=== PATIENT | male | born 1980 | race American Indian/Alaskan Native ===

== ENCOUNTER 2021-03-16 11:39 | Emergency (ER) | payer SELFPAY ==
[2021-03-16 12:11] VITALS: BP 142/80
--- NOTE | 2021-03-16 12:31 | Emergency Department Report ---
ED General Adult HPI - General Chief complaint: Back Pain/Injury Stated complaint: BACK PAIN Time Seen by Provider: 03/16/21 12:29 Source: patient Mode of arrival: Ambulatory Limitations: No Limitations - History of Present Illness Initial comments: 40 year old male presents to ED with complaints of low back pain/cough and chest congestion. Patient states that his symptoms started 3 days ago. Patient states his is sick with covid like symptoms and he has been taking care of her and he is concerned that he may have covid. He states his has not gotten a COVID 19 test since she has been sick. He has not gotten one either. He reports that he was hoping to get one today in ED. He states that his cough is mild and intermittent. He denies any back injury, bowel or bladder incontinence or saddle anesthesia. He denies any wheezing, runny nose, stuffy nose, sore throat, shortness of breath, chest pain, abdominal pain, vomiting, diarrhea or UTI symptoms. He reports intermittent chills but no fever. He admits that he does smoke tobacco. He denies any significant past medical history. He has not gotten a COVID-19 vaccine MD Complaint: Low back pain/Cough/chest congestion/concern for COVID -: Gradual (4 days ago ) Severity scale (0 -10): 6 - Related Data Allergies Allergy/AdvReac Type Severity Reaction Status Date / Time No Known Allergies Allergy Unverified 03/16/21 12:06 ED Review of Systems ROS: Stated complaint: BACK PAIN Other details as noted in HPI Comment: All other systems reviewed and negative Constitutional: denies: chills, fever Eyes: denies: eye pain, eye discharge, vision change ENT: denies: ear pain, throat pain, dental pain, hearing loss, epistaxis Respiratory: cough. denies: shortness of breath, SOB with exertion, SOB at rest, wheezing Cardiovascular: denies: chest pain, palpitations, dyspnea on exertion, edema, syncope, paroxysmal nocturnal dyspnea Endocrine: no symptoms reported Gastrointestinal: denies: abdominal pain, nausea, diarrhea Genitourinary: denies: urgency, dysuria, frequency, hematuria, discharge, testicular pain, testicular mass Musculoskeletal: back pain, myalgia. denies: joint swelling, arthralgia Skin: denies: rash, lesions, change in color, change in hair/nails, pruritus Neurological: denies: headache, weakness, paresthesias Psychiatric: denies: anxiety, depression, auditory hallucinations, visual hallucinations, homicidal thoughts, suicidal thoughts Hematological/Lymphatic: denies: easy bleeding, easy bruising, swollen glands ED Past Medical Hx - Past Medical History Previous Medical History?: No - Surgical History Past Surgical History?: Yes Additional Surgical History: arm surgery, femur and elbow surgery. ED Physical Exam - General Limitations: No Limitations General appearance: alert, in no apparent distress, obese - Head Head exam: Present: atraumatic, normocephalic, normal inspection - Eye Eye exam: Present: normal appearance, PERRL, EOMI Pupils: Present: normal accommodation - ENT ENT exam: Present: normal exam, mucous membranes moist - Neck Neck exam: Present: normal inspection, full ROM. Absent: meningismus - Respiratory Respiratory exam: Present: normal lung sounds bilaterally. Absent: respiratory distress, wheezes, rales, rhonchi - Cardiovascular Cardiovascular Exam: Present: regular rate, normal rhythm, normal heart sounds - GI/Abdominal GI/Abdominal exam: Present: soft. Absent: distended, tenderness, guarding, rebound - Back Exam Back exam: Present: normal inspection, full ROM. Absent: tenderness, CVA tenderness (R), CVA tenderness (L), paraspinal tenderness, vertebral tenderness - Neurological Exam Neurological exam: Present: alert, oriented X3, CN II-XII intact, normal gait. Absent: motor sensory deficit - Psychiatric Psychiatric exam: Present: normal affect, normal mood - Skin Skin exam: Present: intact ED Course Vital Signs 03/16/21 12:09 Temperature 98.9 F Pulse Rate 92 H Respiratory 18 Rate Blood Pressure 142/80 [Right] O2 Sat by Pulse 97 Oximetry ED Medical Decision Making - Radiology Data Radiology results: report reviewed Patient: ARLIN CALVILLO MR#: [id number] : 1980 Acct:[id number] Age/Sex: 40 / M ADM Date: 03/16/21 Loc: ED Attending Dr: Ordering Physician: TASHA GRANGER Date of Service: 03/16/21 Procedure(s): XR chest routine 2V Accession Number(s): [id number] cc: TASHA GRANGER Fluoro Time In Minutes: CHEST 2 VIEWS INDICATION / CLINICAL INFORMATION: cough/chest congestion. COMPARISON: None available. FINDINGS: SUPPORT DEVICES: None. HEART / MEDIASTINUM: No significant abnormality. LUNGS / PLEURA: No significant pulmonary abnormality. No significant pleural effusion. No pneumothorax. ADDITIONAL FINDINGS: No significant additional findings. IMPRESSION: 1. No acute abnormality of the chest. Signer Name: James Gusman MD Signed: 03/16/2021 1:11 PM Workstation Name: [id number] Transcribed By: [place] Dictated By: James Gusman MD Electronically Authenticated By: James Gusman MD Signed Date/Time: 03/16/211310 DD/ 10 TD/TT: Critical care attestation.: If time is entered above; I have spent that time in minutes in the direct care of this critically ill patient, excluding procedure time. ED Disposition Clinical Impression: Viral illness, Lumbar pain Disposition: HOME / SELF CARE / HOMELESS Is pt being admited?: No Does the pt Need Aspirin: No Condition: Stable Instructions: Acute Back Pain, Adult, Viral Illness, Adult Additional Instructions: I recommend that you go to local urgent care or pharmacy for COVID 19 test. I recommend that quarantine along with your until both of you find out with the COVID-19 test is positive or negative. You can take ibuprofen and or Tylenol from [id number] as needed for pain. You can take Robitussin or Mucinex [id number] as needed for cough. Follow-up closely with your PCP. Return to the ER if any of his symptoms worsens or changes. Referrals: CLYDE MCELROY MD [Staff Physician] - 3-5 Days Time of Disposition: 13:19
--- NOTE | 2021-03-16 13:15 | XRay Report ---
CHEST 2 VIEWS INDICATION / CLINICAL INFORMATION: cough/chest congestion. COMPARISON: None available. FINDINGS: SUPPORT DEVICES: None. HEART / MEDIASTINUM: No significant abnormality. LUNGS / PLEURA: No significant pulmonary abnormality. No significant pleural effusion. No pneumothora x. ADDITIONAL FINDINGS: No significant additional findings. IMPRESSION: 1. No acute abnormality of the chest. Signer Name: James Gusman MD Signed: 03/16/2021 1:11 PM Workstation Name: [id number]
== END 2021-03-16 13:35 | disposition home or self-care (01) ==
LOC: ED 11:39
DX: M54.5 Low back pain (principal); B34.9 Viral infection, unspecified; Z79.899 Other long term (current) drug therapy
CPT/HCPCS: 71046

== ENCOUNTER 2021-07-02 21:08 | Emergency (ER) | payer OTHER ==
[2021-07-03] MEDS ORDERED: FAMOTIDINE 20 MG TAB PO ONE (00:12)
[2021-07-03] MEDS ORDERED: HYDROcodone/ACETAMINOPHEN 5-325 MG TAB PO ONE (00:12)
[2021-07-03] MEDS ORDERED: ONDANSETRON 4 MG ODT TAB PO ONE (00:12)
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
[2021-07-03 03:14] LABS: Basophils % (Auto) 0.6 % (0.0-1.8); Eosinophils # (Auto) 0.2 K/mm3 (0.0-0.4); Eosinophils % (Auto) 2.4 % (0.0-4.3); Hematocrit 44.2 % (35.5-45.6); Hemoglobin 14.2 gm/dl (11.8-15.2); Lymphocytes # (Auto) 3.1 K/mm3 (1.2-5.4); Lymphocytes % (Auto) 40.6 % (13.4-35.0); Mean Corpuscular HGB Conc 32 % (32-34); Mean Corpuscular Volume 91 fl (84-94); Monocytes # (Auto) 0.5 K/mm3 (0.0-0.8); Monocytes % (Auto) 6.3 % (0.0-7.3); Platelet Count 339 K/mm3 (140-440); Red Blood Count 4.87 M/mm3 (3.65-5.03); Red Cell Distribution Width 12.4 % (13.2-15.2)
[2021-07-03 03:20] LABS: Alanine Aminotransferase 16 units/L (7-56); Albumin 4.2 g/dL (3.9-5); BUN/Creatinine Ratio 13; Blood Urea Nitrogen 17 mg/dL (9-20); Calcium 9.2 mg/dL (8.4-10.2); Hemolysis Index 43
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
[2021-07-03 04:49] VITALS: BP 127/78
== END 2021-07-03 04:54 | disposition home or self-care (01) ==
LOC: ED 21:08
DX: S13.9XXA Sprain of joints and ligaments of unspecified parts of neck, initial encounter (principal); M62.830 Muscle spasm of back; S53.402A Unspecified sprain of left elbow, initial encounter; S80.01XA Contusion of right knee, initial encounter; S30.1XXA Contusion of abdominal wall, initial encounter; Z98.890 Other specified postprocedural states; V87.7XXA Person injured in collision between other specified motor vehicles (traffic), initial encounter; Y93.89 Activity, other specified; Y92.488 Other paved roadways as the place of occurrence of the external cause; Y99.8 Other external cause status
CPT/HCPCS: 36415; 72100; 72125; 73080; 73562; 74177; 80053; 85025; 99284; Q9967; J3490; Q0162